=== PATIENT | female | born 1995 | race Caucasian/White ===

== ENCOUNTER 2017-02-09 10:32 | Day surgery (SDC) | payer SELFPAY, MEDICAID ==
[~2017-02-09 10:32] MED LIST: Acetaminophen/HYDROcodone 325-5 MG Tab PO PRN; Bupivacaine 0.25%/EPINEPHrine 1:200,000 10 ML SDV INJECT ONE; Bupivacaine 0.25%/EPINEPHrine 1:200,000 10 ML SDV ONE; Dexamethasone 4 MG/ML 5 ML MDV ONE; EPINEPHrine 1 MG/ML SDV ONE; Gentamicin 40 MG/ML 2 ML Vial ONE; Lactated Ringers 1,000 ML IV SCH; Lidocaine 2% 5 ML SDV ONE; Midazolam 1 MG/ML 2 ML SDV ONE; Ondansetron 4 MG/2 ML SDV ONE; Propofol 200 MG/20 ML SDV ONE; Rocuronium 10 MG/ML 10 ML Syringe ONE; Scopolamine 1.5 MG Transdermal Patch TRDERM PRN; ceFAZolin 1 GM Vial ONE; ceFAZolin 2 GM in Premix Bag 1 BAG IV ONE; diphenhydrAMINE 50 MG/ML SDV ONE; fentaNYL 250 MCG/5 ML SDV ONE
--- NOTE | 2017-02-09 10:53 | PCM.PREANE ---
Preanesthetic Assessment - Anesthesia/Transfusion/Family Hx Anesthesia History: Prior Anesthesia Without Reaction Family History of Anesthesia Reaction: No Transfusion History: Prior Transfusion Without Reaction Intubation History: Unknown - Review of Systems General: No Symptoms Pulmonary: No Symptoms Cardiovascular: No Symptoms Gastrointestinal: No Symptoms Neurological: No Symptoms Other: Reports: None - Physical Assessment Height: 1.78 m Weight: 62.596 kg ASA Class: 2 Mental Status: Alert & Oriented x3 Airway Class: Mallampati = 2 Dentition: Reports: Normal Dentition Thyro-Mental Finger Breadths: 3 Mouth Opening Finger Breadths: 3 ROM/Head Extension: Full Lungs: Clear to Auscultation, Normal Respiratory Effort Cardiovascular: Regular Rate, Regular Rhythm - Allergies Allergies/Adverse Reactions: Allergies Allergy/AdvReac Type Severity Reaction Status Date / Time No Known Allergies Allergy Verified 07/11/16 14:47 - Blood Blood Available: No - Anesthesia Plan Pre-Op Medication Ordered: None - Acknowledgements Anesthesia Type Planned: General Anesthesia Pt an Appropriate Candidate for the Planned Anesthesia: Yes Alternatives and Risks of Anesthesia Discussed w Pt/Guardian: Yes Pt/Guardian Understands and Agrees with Anesthesia Plan: Yes PreAnesthesia Questionnaire - Past Health History Medical/Surgical History: Denies Medical/Surgical History HEENT History: Reports: None Cardiovascular History: Reports: None Respiratory History: Reports: None Other Respiratory History: Pt reported dry cough for 5 days now Gastrointestinal History: Reports: None Genitourinary History: Reports: None ANALYTICAL ENGINEER History: Reports: Polycystic Ovaries, , Spontaneous , Other (See Below) (molar in second trimester a year ago) Musculoskeletal History: Reports: None Neurological History: Reports: Concussion Psychiatric History: Reports: Depression Other Psychiatric History: Pt reported history of depression but did not take any medication for it. she stated "I tried to kill myself when I was in high school" Endocrine/Metabolic History: Reports: None Hematologic History: Reports: Blood Transfusion(s) Other Hematologic History: hx transfusion with previous miscarraige when pt had her d/c Immunologic History: Reports: None Oncologic (Cancer) History: Reports: None Dermatologic History: Reports: Eczema Other Dermatologic History: cystic acne - Infectious Disease History Infectious Disease History: Reports: None - Past Surgical History Head Surgeries/Procedures: Reports: None HEENT Surgical History: Reports: Tonsillectomy Female Surgical History: Reports: D&C, Other (See Below) Other Female Surgeries/Procedures: D&C x2, miscarriage - SUBSTANCE USE Smoking Status *Q: Current Every Day Smoker (1/2 ppd) Tobacco Use Within Last Twelve Months: Cigarettes Days Per Week of Alcohol Use: 1 Number of Drinks Per Day: 1 Total Drinks Per Week: 1 Recreational Drug Use History: No - HOME MEDS Home Medications: Home Meds Adapalene 1 applic TOP BEDTIME 02/06/17 [History] Clindamycin Phosphate [Clindagel] 1 applic TOP BID 02/06/17 [History] metFORMIN HCl [Metformin HCl] 500 mg PO BID 02/06/17 [History] - CURRENT (IN HOUSE) MEDS Current Meds: Current Medications Hydrocodone Bitart/Acetaminophen (Rapidan 325-5 Mg) 1 tab PO Q4H PRN PRN Reason: Pain Lactated Ringer's (Ringers, Lactated) 1,000 mls @ 125 mls/hr IV ASDIRECTED MARQUEZ Scopolamine (Transderm-Scop) 1.5 mg TRDERM .ONCE PRN PRN Reason: Post Op Nausea Discontinued Medications Bacitracin (Bacitracin) 50,000 units .ROUTE .STK-MED ONE Stop: 02/09/17 07:16 Bupivacaine HCl/Epinephrine Bitart (Marcaine 0.25%/Epinephrine 1:200,000) 30 ml INJECT ONETIME ONE Stop: 02/09/17 10:01 Bupivacaine HCl/Epinephrine Bitart (Marcaine 0.25%/Epinephrine 1:200,000) Confirm Administered Dose 40 ml .ROUTE .STK-MED ONE Stop: 02/09/17 07:29 Cefazolin Sodium (Ancef) Confirm Administered Dose 1 gm .ROUTE .STK-MED ONE Stop: 02/09/17 07:29 Dexamethasone (Dexamethasone) Confirm Administered Dose 20 mg .ROUTE .STK-MED ONE Stop: 02/09/17 09:40 Diphenhydramine HCl (Benadryl) Confirm Administered Dose 50 mg .ROUTE .STK-MED ONE Stop: 02/09/17 09:40 Epinephrine HCl (Adrenalin 1:1000) Confirm Administered Dose 1 mg .ROUTE .STK- MED ONE Stop: 02/09/17 07:29 Fentanyl (Sublimaze) Confirm Administered Dose 250 mcg .ROUTE .STK-MED ONE Stop: 02/09/17 09:40 Gentamicin Sulfate (Gentamicin) Confirm Administered Dose 80 mg .ROUTE .STK-MED ONE Stop: 02/09/17 07:29 Cefazolin Sodium/Dextrose 2 gm (/ Premix) 50 mls @ 100 mls/hr IV ONETIME ONE Stop: 02/09/17 09:29 Lidocaine (Xylocaine-Mpf 2%) Confirm Administered Dose 5 ml .ROUTE .STK-MED ONE Stop: 02/09/17 09:39 Midazolam HCl (Versed 1 Mg/Ml) Confirm Administered Dose 2 mg .ROUTE .STK-MED ONE Stop: 02/09/17 09:40 Ondansetron HCl (Zofran) Confirm Administered Dose 4 mg .ROUTE .STK-MED ONE Stop: 02/09/17 09:39 Propofol (Diprivan 20 Ml) Confirm Administered Dose 200 mg .ROUTE .STK-MED ONE Stop: 02/09/17 09:40 Rocuronium [place] (Zemuron) Confirm Administered Dose 100 mg .ROUTE .STK-MED ONE Stop: 02/09/17 09:39
[2017-02-09] MEDS ORDERED: HYDROmorphone 2 MG/ML Syringe ONE (11:22)
[2017-02-09] MEDS ORDERED: fentaNYL 100 MCG/2 ML SDV IVPUSH PRN (11:36)
[2017-02-09] MEDS ORDERED: Ketorolac 30 MG/ML SDV ONE (12:20)
--- NOTE | 2017-02-09 13:20 | PCM.POSTAN ---
POST ANESTHESIA ASSESSMENT - MENTAL STATUS Mental Status: Alert, Oriented - RESPIRATORY Respiratory Status: Respiratory Rate WNL, Airway Patent, O2 Saturation Stable - CARDIOVASCULAR CV Status: Pulse Rate WNL, Blood Pressure Stable - GASTROINTESTINAL GI Status: No Symptoms - PAIN Pain Score: 5 - POST OP HYDRATION Hydration Status: Adequate & Stable - OBSERVATIONS Free Text/Narrative:: no anesthesia problems
[2017-02-09] MEDS ORDERED: diphenhydrAMINE 50 MG/ML SDV IVPUSH ONE (13:38)
[2017-02-09] MEDS ORDERED: diphenhydrAMINE 25 MG Cap PO ONE (15:04)
[2017-02-09 15:27] VITALS: BP 129/78
--- NOTE | 2017-02-12 09:14 | PCM.OPNOTE ---
- General Post-Op/Procedure Note Date of Surgery/Procedure: 02/09/17 Operative Procedure(s): bilateral breast augmentation Pre Op Diagnosis: desire for breast augmentation - saline Post-Op Diagnosis: Same Anesthesia Technique: General ET Tube, Local Primary Surgeon: Monisha Figueroa Stage Set Designer: Ese Jack Complications: None Condition: Good
--- NOTE | 2017-02-13 00:55 | OR ---
SURGEON: RENO ALONSO MD DATE OF PROCEDURE: 02/09/2017 PREOPERATIVE DIAGNOSIS: Desire for breast augmentation. POSTOPERATIVE DIAGNOSIS: Desire for breast augmentation. PROCEDURE PERFORMED: Bilateral saline breast augmentation. ANODE MACHINE OPERATOR: SIERRA Noguera. INDICATIONS: Ms. Levi is a 21-year-old female seen today in evaluation for bilateral breast augmentation. She is too young for silicone and would like to proceed with saline implant augmentation. Risks and benefits were discussed with her, and she was in agreement to proceed. Risks were including, but not limited to, bleeding, infection, damage to underlying or overlying structures, possible need for future interventions, and possible scarring. DESCRIPTION OF PROCEDURE: After informed consent was obtained and placed on the chart, the patient was brought to the operating theater laid in supine position. After adequate general anesthesia was obtained, the area was prepped and draped, and a time-out was completed to verify side and site. Attention was then paid to infiltration of local anesthesia around the breast area and marking of the incision in the anticipated inframammary fold approximately 7 cm from the nipple areolar complex. Once adequately marked, attention was then paid to dissection and a #15 blade was used to dissect through the skin and subcutaneous tissues. Then, Bovie electrocautery was used to dissect until localization of the inferior border of the pectoralis muscle. The inferior border was transected under direct visualization using lighted mammary retractor. Once adequately transected, the subpectoral plane was dissected and meticulous hemostasis was obtained. The pocket was copiously irrigated and packed with epi soaked laps. Attention was paid to symmetric dissection on the opposite side. Once completed, the pockets were copiously irrigated with triple antibiotic solution. The style 68MP Natrelle saline- filled breast implants were then opened and prepped in normal fashion. All air was removed and the implants were placed into the pocket. They have been expanded with 120 mL of fluid prior to the placement into the pocket to ensure constitution of the implant itself. Once placed, the 390 mL implants were filled to 420 mL of sterile injectable saline. The patient was sat up and appropriate symmetry was appreciated. Prior to placement of the implants, tacking 2-0 PDS sutures were used along the inframammary fold and lateral margin to ensure appropriate placement of the implant. Once the implants were placed, the skin was closed with deep 3-0 Monocryl stitches and a running 4-0 subcuticular for the skin. Unfortunately, the initial right saline implant was punctured and had to be removed and was replaced with a new saline implant. IMPLANTED IMPLANTS: 1. On the right, Natrelle style 68MP 390 mL saline implant, reference number 68-390, serial number [id number], was filled to 420 mL. 2. Style 68MP Natrelle saline-filled breast implant 390 mL, reference number 68-390, serial number [id number] placed on the left and filled to 420 mL. DISCARDED IMPLANT: Discarded implant that was punctured during the procedure was reference number 68-390, serial number [id number]. Once adequately placed and the skin incisions were closed appropriately, these incisions were dressed with Steri-Strips, fluffs, and tape and a compression bra. The patient tolerated this well. All counts of needles were correct at the end the case. FOLLOWUP INSTRUCTIONS: The patient will see us in clinic on Sunday or sooner if any problems, questions, or concerns. ASIYA / BETH /[id number]
== END 2017-02-09 15:15 | disposition home or self-care (01) ==
LOC: MW.SDS 10:32
PROVIDERS: ATTEND Plastic Surgery
PROC: 0H0V0JZ Alteration of Bilateral Breast with Synthetic Substitute, Open Approach (ICD-10-PCS; principal; 2017-02-09)
DX: Z41.1 Encounter for cosmetic surgery (principal); E28.2 Polycystic ovarian syndrome; F32.9 Major depressive disorder, single episode, unspecified; F17.210 Nicotine dependence, cigarettes, uncomplicated; Z86.19 Personal history of other infectious and parasitic diseases; Z90.89 Acquired absence of other organs; Z98.890 Other specified postprocedural states; Z79.899 Other long term (current) drug therapy
CPT/HCPCS: 19325; 81025; A9270; J0171; J0690; J1100; J1170; J1200; J1580; J1885; J2250; J2405; J3010; J7120; 00402; C1789; J2704

== ENCOUNTER 2017-10-25 21:53 | Inpatient (IN) | payer MEDICAID ==
[2017-10-25] MEDS ORDERED: Sodium Chloride 0.9% 10 ML Syringe FLUSH PRN (22:15)
[2017-10-25] MEDS ORDERED: Methylergonovine 0.2 MG/1 ML Amp IM PRN (22:15)
[2017-10-25] MEDS ORDERED: Misoprostol 200 MCG Tab PO PRN (22:15)
[2017-10-25] MEDS ORDERED: Butorphanol 1 MG/ML SDV IVPUSH PRN (22:15)
[2017-10-25] MEDS ORDERED: Nalbuphine 10 MG/1 ML Vial IVPUSH PRN (22:15)
[2017-10-25] MEDS ORDERED: Tranexamic Acid 1,000 MG in Sodium Chloride 0.9% 100 ML IV PRN (22:15)
[2017-10-25] MEDS ORDERED: Oxytocin/0.9 % Sodium Chloride 30 UNIT/500 ML BAG IV SCH ×2 (22:15→22:30)
[2017-10-25] MEDS ORDERED: Carboprost Tromethamine 250 MCG/1 ML Amp IM PRN (22:15)
[2017-10-25] MEDS ORDERED: Water For Irrigation,Sterile 1,000 ML Container IRR PRN (22:15)
[2017-10-25] MEDS ORDERED: Lidocaine 1% 50 ML MDV INJECT PRN (22:15)
[2017-10-25] MEDS ORDERED: Sodium Chloride 0.9% 2.5 ML Syringe FLUSH PRN (22:15)
[2017-10-25] MEDS ORDERED: Misoprostol 25 MCG (1/4 of 100 MCG) Tab VAG PRN (22:16)
[2017-10-25] MEDS ORDERED: Terbutaline 1 MG/ML SDV SUBCUT PRN (22:16)
[2017-10-25] MEDS ORDERED: Misoprostol 25 MCG (1/4 of 100 MCG) Tab VAG SCH (22:30)
[2017-10-26] MEDS: Lactated Ringers 1,000 ML IV SCH ×3 (03:40→07:17)
--- NOTE | 2017-10-26 05:30 | PCM.PREANE ---
Preanesthetic Assessment - Anesthesia/Transfusion/Family Hx Anesthesia History: Prior Anesthesia Without Reaction Family History of Anesthesia Reaction: No Transfusion History: Prior Transfusion Without Reaction Intubation History: Unknown - Review of Systems General: No Symptoms Pulmonary: No Symptoms Cardiovascular: No Symptoms Gastrointestinal: No Symptoms Neurological: No Symptoms Other: Reports: None (Denies any personal or family hx of bleeding or clotting problems) - Physical Assessment Height: 1.55 m Weight: 74.843 kg ASA Class: 2 Mental Status: Alert & Oriented x3 Airway Class: Mallampati = 2 Dentition: Reports: Normal Dentition - Lab Values: Laboratory Last Values WBC 9.40 K/uL (4.0-11.0) 10/25/17 22: RBC 3.95 M/uL (4.30-5.90) L 10/25/17 22: Hgb 11.6 g/dL (12.0-16.0) L 10/25/17 22: Hct 34.3 % (36.0-46.0) L 10/25/17 22: MCV 86.8 fL (80.0-98.0) 10/25/17 22: MCH 29.4 pg (27.0-32.0) 10/25/17 22: MCHC 33.8 g/dL (31.0-37.0) 10/25/17 22: RDW Std Deviation 42.9 fl (28.0-62.0) 10/25/17 22: RDW Coeff of Elvie 13 % (11.0-15.0) 10/25/17 22: Plt Count 268 K/uL (150-400) 10/25/17 22: MPV 9.80 fL (7.40-12.00) 10/25/17 22:27 Nucleated RBC % 0.0 /100WBC 10/25/17 22: Nucleated RBCs # 0 K/uL 10/25/17 22:27 Blood Type O POSITIVE 10/25/17 22:27 Antibody Screen NEGATIVE 10/25/17 22:27 - Allergies Allergies/Adverse Reactions: Allergies Allergy/AdvReac Type Severity Reaction Status Date / Time perfume Allergy Rash Verified 10/25/17 22:11 - Acknowledgements Anesthesia Type Planned: Epidural Pt an Appropriate Candidate for the Planned Anesthesia: Yes Alternatives and Risks of Anesthesia Discussed w Pt/Guardian: Yes Pt/Guardian Understands and Agrees with Anesthesia Plan: Yes PreAnesthesia Questionnaire - Past Health History Medical/Surgical History: Denies Medical/Surgical History HEENT History: Reports: None Cardiovascular History: Reports: None Respiratory History: Reports: None Other Respiratory History: Pt reported dry cough for 5 days now Gastrointestinal History: Reports: None Genitourinary History: Reports: None 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 she stated "I tried to kill myself when I was in high school" Endocrine/Metabolic History: Reports: None Hematologic History: Reports: Blood Transfusion(s) Other Hematologic History: hx transfusion with previous miscarraige when pt had her d/c Immunologic History: Reports: None Oncologic (Cancer) History: Reports: None Dermatologic History: Reports: Eczema Other Dermatologic History: cystic acne - Infectious Disease History Infectious Disease History: Reports: None - Past Surgical History Head Surgeries/Procedures: Reports: None HEENT Surgical History: Reports: Tonsillectomy Female Surgical History: Reports: Breast Implant, D&C, Other (See Below) Other Female Surgeries/Procedures: D&C x2, miscarriage, breast augmentation - SUBSTANCE USE Smoking Status *Q: Current Every Day Smoker Tobacco Use Within Last Twelve Months: Cigarettes Days Per Week of Alcohol Use: 1 Number of Drinks Per Day: 1 Total Drinks Per Week: 1 Recreational Drug Use History: No - HOME MEDS Home Medications: Home Meds metFORMIN HCl [Metformin HCl] 500 mg PO BID 02/06/17 [History] - CURRENT (IN HOUSE) MEDS Current Meds: Current Medications Butorphanol Tartrate (Stadol) 1 mg IVPUSH Q1H PRN PRN Reason: Pain Carboprost Tromethamine (Hemabate Ds) 250 mcg IM ASDIRECTED PRN PRN Reason: Post Hemorrhage Lactated Ringer's (Ringers, Lactated) 1,000 mls @ 150 mls/hr IV ASDIRECTED MARQUEZ Last Admin: 10/26/17 05:04 Dose: 500 mls/hr Oxytocin/Sodium Chloride (Oxytocin 30 Unit/500 Ml-Ns) 30 unit in 500 mls @ 999 mls/hr IV TITRATE MARQUEZ Tranexamic Acid 1,000 mg/ (Sodium Chloride) 110 mls @ 660 mls/hr IV ONETIME PRN PRN Reason: Bleeding Oxytocin/Sodium Chloride (Oxytocin 30 Unit/500 Ml-Ns) 30 unit in 500 mls @ 2 mls/hr IV TITRATE MARQUEZ; Protocol Lidocaine HCl (Xylocaine 1%) 50 ml INJECT .ONCE PRN PRN Reason: Laceration repair Methylergonovine Maleate (Methergine) 0.2 mg IM ASDIRECTED PRN PRN Reason: Post Hemorrhage Misoprostol (Cytotec) 200 mcg PO .ONCE PRN PRN Reason: Post Hemorrhage Misoprostol (Cytotec) 25 mcg VAG .ONCE MARQUEZ Last Admin: 10/25/17 22:45 Dose: 25 mcg Misoprostol (Cytotec) 25 mcg VAG Q6H PRN PRN Reason: Cervical Ripening Nalbuphine HCl (Nubain) 10 mg IVPUSH Q1H PRN PRN Reason: Pain (severe 7-10) Sodium Chloride (Saline Flush) 10 ml FLUSH ASDIRECTED PRN PRN Reason: Keep Vein Open Sodium Chloride (Saline Flush) 2.5 ml FLUSH ASDIRECTED PRN PRN Reason: Keep Vein Open Sterile Water (Sterile Water For Irrigation) 1,000 ml IRR ASDIRECTED PRN PRN Reason: delivery Terbutaline Sulfate (Brethine) 0.25 mg SUBCUT ASDIRECTED PRN PRN Reason: Tacysystole Discontinued Medications Fentanyl/Bupivacaine HCl (Aefagvjq-Ohknq-Yr 2 Mcg/Ml-0.125%) Confirm Administered Dose 100 mls @ as directed EP .STK-MED ONE Stop: 10/26/17 04:54
[2017-10-26] MEDS ORDERED: Acetaminophen 500 MG Tab PO PRN ×2 (08:33)
[2017-10-26] MEDS ORDERED: Docusate Sodium 100 MG Cap PO PRN (08:33)
[2017-10-26] MEDS ORDERED: Witch Hazel Medicated Pads 40/Jar TOP PRN (08:33)
[2017-10-26] MEDS ORDERED: oxyCODONE 5 MG Tab PO PRN (08:33)
[2017-10-26] MEDS ORDERED: Ibuprofen 400 MG Tab PO PRN (08:33)
[2017-10-26] MEDS ORDERED: Bisacodyl 10 MG Supp RECTAL PRN (08:33)
[2017-10-26] MEDS ORDERED: Lanolin 100% Cream 7 GM Tube TOP PRN (08:33)
[2017-10-26] MEDS ORDERED: Benzocaine/Menthol 20%-0.5% Spray 78 GM Cannister TOP PRN (08:33)
[2017-10-26] MEDS: Ibuprofen 800 MG Tab PO PRN ×2 (14:49→21:30)
--- NOTE | 2017-10-26 15:43 | OR ---
SURGEON: Yany Sandhu MD DATE OF PROCEDURE: 10/26/2017 PREOPERATIVE DIAGNOSES: 1. Intrauterine at 39 weeks and 1 day. 2. Elective induction of labor. POSTOPERATIVE DIAGNOSES: 1. Intrauterine at 39 weeks and 1 day. 2. Elective induction of labor. 3. Delivered. PROCEDURES: 1. Induction of labor. 2. Spontaneous vaginal delivery. ANESTHESIA: Epidural. ESTIMATED BLOOD LOSS: 200 mL. COMPLICATIONS: None. DISPOSITION: Mother and baby stable in Labor and Delivery room, bonding. FINDINGS: Male , weight 3430 g, and score of 7 and 8. Grossly normal placenta with three-vessel cord. Bilateral labial abrasions, hemostatic. BRIEF HISTORY: The patient is a 21-year-old, G5, P1-0-0-3-1, who was admitted overnight at 39 weeks' gestation for elective induction of labor secondary to remote distance from the hospital. Her care was uncomplicated. GBS negative. On admission, she was 2 cm dilated and received one dose of Cytotec vaginally, 25 mcg and progressed to 4 cm at her recheck 6 hours later, and requested and received epidural at that time. Spontaneous rupture of membranes, cord, and clear amniotic fluid noted. She then progressed to full dilatation within 3 hours and with increasing rectal pressure, she commenced pushing. heart tracing was category 1. She pushed quite well bringing the head down to a +4 station and was set up for delivery in modified dorsal lithotomy position. DESCRIPTION OF PROCEDURE: She had a spontaneous vaginal delivery of a live male infant in right occipital anterior position, and loose nuchal cord easily reduced. Clear amniotic fluid at delivery. Anterior and posterior shoulders and the rest of the baby were delivered without difficulty. Baby was vigorous and cried spontaneously at . The baby was delivered onto the maternal abdomen with the nursery nurse in attendance, stimulating and drying him. Delayed cord clamping was observed and the cord was cut. With delivery of the infant, oxytocin titration was commenced for active management of third stage of labor. Cord blood and gas samples were obtained. The placenta was delivered by controlled cord traction, appeared to be complete and intact. Uterine massage was performed. The uterus was found to be well contracted below the umbilicus. Examination of the perineum revealed bilateral groin abrasions which were hemostatic. The patient tolerated the procedure well. Sponge, instrument, and needle counts were correct at the end of the delivery. ADUMVIV / MODL /[id number]
--- NOTE | 2017-10-27 07:48 | PCM48HPAN ---
Post Anesthesia Note - EVALUATION WITHIN 48HRS OF ANESTHETIC Vital Signs in Normal Range: Yes Patient Participated in Evaluation: Yes Respiratory Function Stable: Yes Airway Patent: Yes Cardiovascular Function Stable: Yes Hydration Status Stable: Yes Pain Control Satisfactory: Yes Nausea and Vomiting Control Satisfactory: Yes Mental Status Recovered: Yes Resp Rate: 16
[2017-10-27 08:06] VITALS: BP 133/71
--- NOTE | 2017-10-27 08:48 | PCM.PNPP ---
<Anette Reyes - Last Filed: 10/27/17 08:42> - General Info Date of Service: 10/27/17 Admission Dx/Problem (Free Text): 39/1 EIOL secondary to remote distance from hospital, . Subjective Update: Patient is doing well. Pain well controlled with medications. . Lochia WNL. Tolerating food with no n/v. Urinating. No bowel movement, but flatus present. Ambulating. Functional Status: Reports: Pain Controlled, Tolerating Diet, Ambulating, Urinating - Review of Systems General: Denies: Fever, Chills HEENT: Denies: Headaches Pulmonary: Denies: Shortness of Breath, Pleuritic Chest Pain Cardiovascular: Denies: Chest Pain, Palpitations, Lightheadedness Gastrointestinal: Reports: Flatus. Denies: Nausea, Vomiting Psychiatric: Reports: No Symptoms - General Info Date of Service: 10/27/17 - Patient Data Vital Signs - Most Recent: Last Vital Signs Temp 36.5 C 10/27/17 08:05 Pulse 65 10/27/17 08:05 Resp 16 10/27/17 08:05 BP 133/71 10/27/17 08:05 Pulse Ox 95 10/27/17 08:05 Weight - Most Recent: 74.843 kg Lab Results - Last 24 Hours: Laboratory Results - last 24 hr 10/26/17 10/27/17 Range/Units 08:03 06:08 Hgb 11.2 L (12.0-16.0) g/dL Hct 34.3 L (36.0-46.0) % Cord ABG pH 7.245 (7.18-7.38) Cord ABG Base Excess -4 (-10--2) Cord VBG pH 7.368 (7.25-7.45) Cord VBG Base Excess -4 (-10--2) Med Orders - Current: Current Medications Acetaminophen (Tylenol Extra Strength) 500 mg PO Q4H PRN PRN Reason: Pain Acetaminophen (Tylenol Extra Strength) 1,000 mg PO Q4H PRN PRN Reason: Pain Benzocaine/Menthol (Dermoplast Pain Relief 20%-0.5% [place]) 78 gm TOP ASDIRECTED PRN PRN Reason: Perineal Comfort Measure Bisacodyl (Dulcolax) 10 mg RECTAL .ONCE PRN PRN Reason: Constipation Docusate Sodium (Colace) 100 mg PO BID PRN PRN Reason: Constipation Last Admin: 10/26/17 21:30 Dose: 100 mg Emollient Ointment (Lansinoh Hpa) 0 gm TOP ASDIRECTED PRN PRN Reason: Sore Nipples Ibuprofen (Motrin) 400 mg PO Q4H PRN PRN Reason: Pain Ibuprofen (Motrin) 800 mg PO Q6H PRN PRN Reason: Pain Last Admin: 10/26/17 21:30 Dose: 800 mg Oxycodone HCl (Oxycodone) 5 mg PO Q2H PRN PRN Reason: Pain Witch Ruth (Tucks) 1 pad TOP ASDIRECTED PRN PRN Reason: comfort care Discontinued Medications Butorphanol Tartrate (Stadol) 1 mg IVPUSH Q1H PRN PRN Reason: Pain Carboprost Tromethamine (Hemabate Ds) 250 mcg IM ASDIRECTED PRN PRN Reason: Post Hemorrhage Lactated Ringer's (Ringers, Lactated) 1,000 mls @ 150 mls/hr IV ASDIRECTED [facility]QUEZ Last Admin: 10/26/17 07:17 Dose: 500 mls/hr Oxytocin/Sodium Chloride (Oxytocin 30 Unit/500 Ml-Ns) 30 unit in 500 mls @ 999 mls/hr IV TITRATE REPLACED BY [facility] Last Admin: 10/26/17 08:05 Dose: 999 mls/hr Tranexamic Acid 1,000 mg/ (Sodium Chloride) 110 mls @ 660 mls/hr IV ONETIME PRN PRN Reason: Bleeding Oxytocin/Sodium Chloride (Oxytocin 30 Unit/500 Ml-Ns) 30 unit in 500 mls @ 2 mls/hr IV TITRATE REPLACED BY [facility]; Protocol Fentanyl/Bupivacaine HCl ([place]-Upwul-Hb 2 Mcg/Ml-0.125%) Confirm Administered Dose 100 mls @ as directed EP .[facility] Stop: 10/26/17 04:54 Lidocaine HCl (Xylocaine 1%) 50 ml INJECT .ONCE PRN PRN Reason: Laceration repair Methylergonovine Maleate (Methergine) 0.2 mg IM ASDIRECTED PRN PRN Reason: Post Hemorrhage Misoprostol (Cytotec) 200 mcg PO .ONCE PRN PRN Reason: Post Hemorrhage Misoprostol (Cytotec) 25 mcg VAG .ONCE [facility] Last Admin: 10/25/17 22:45 Dose: 25 mcg Misoprostol (Cytotec) 25 mcg VAG Q6H PRN PRN Reason: Cervical Ripening Nalbuphine HCl (Nubain) 10 mg IVPUSH Q1H PRN PRN Reason: Pain (severe 7-10) Sodium Chloride (Saline Flush) 10 ml FLUSH ASDIRECTED PRN PRN Reason: Keep Vein Open Sodium Chloride (Saline Flush) 2.5 ml FLUSH ASDIRECTED PRN PRN Reason: Keep Vein Open Sterile Water (Sterile Water For Irrigation) 1,000 ml IRR ASDIRECTED PRN PRN Reason: delivery Terbutaline Sulfate (Brethine) 0.25 mg SUBCUT ASDIRECTED PRN PRN Reason: Tacysystole - Interaction Disposition, : in Room with Family Interaction: Holding Infant Feeding: Attempted ; Nursed Fair/Poor Support Person: - Recovery Exam Fundal Tone: Firm Fundal Level: 1 Fingerbreadths Below Umbilicus Fundal Placement: Midline Lochia Amount: Scant Lochia Color: Rubra/Red Episiotomy/Laceration: None Bladder Status: Voiding Urinary Elimination: Voided - Exam General: Alert, Oriented, No Acute Distress Lungs: Clear to Auscultation, Normal Respiratory Effort Cardiovascular: Regular Rate, Regular Rhythm GI/Abdominal Exam: Soft, Non-Tender Extremities: Pedal Edema Skin: Warm, Dry Psy/Mental Status: Alert Physical Findings Comment:: Trace edema. - Problem List & Annotations (1) Vaginal delivery SNOMED Code(s): 097734744 Code(s): O80 - ENCOUNTER FOR FULL-TERM UNCOMPLICATED DELIVERY Status: Acute Current Visit: Yes - Assessment Assessment:: PPD #1. Stable. Anticipate discharge. - Plan Plan:: Reviewed discharge instructions. Pelvic rest for 6 weeks. Continue PNV while . Use OTC tylenol/ibuprofen as needed for pain. Call if fever greater than 101 or bleeding through a heavy pad in an hour. Follow-up appointment in 6 weeks. <Bridgett Sarabia - Last Filed: 10/27/17 09:52> - Patient Data Vital Signs - Most Recent: Last Vital Signs Temp 36.5 C 10/27/17 08:05 Pulse 65 10/27/17 08:05 Resp 16 10/27/17 08:05 BP 133/71 10/27/17 08:05 Pulse Ox 95 10/27/17 08:05 Lab Results - Last 24 Hours: Laboratory Results - last 24 hr 10/27/17 Range/Units 06:08 Hgb 11.2 L (12.0-16.0) g/dL Hct 34.3 L (36.0-46.0) % Med Orders - Current: Current Medications Acetaminophen (Tylenol Extra Strength) 500 mg PO Q4H PRN PRN Reason: Pain Acetaminophen (Tylenol Extra Strength) 1,000 mg PO Q4H PRN PRN Reason: Pain Benzocaine/Menthol (Dermoplast Pain Relief 20%-0.5% [place]) 78 gm TOP ASDIRECTED PRN PRN Reason: Perineal Comfort Measure Bisacodyl (Dulcolax) 10 mg RECTAL .ONCE PRN PRN Reason: Constipation Docusate Sodium (Colace) 100 mg PO BID PRN PRN Reason: Constipation Last Admin: 10/26/17 21:30 Dose: 100 mg Emollient Ointment (Lansinoh Hpa) 0 gm TOP ASDIRECTED PRN PRN Reason: Sore Nipples Ibuprofen (Motrin) 400 mg PO Q4H PRN PRN Reason: Pain Ibuprofen (Motrin) 800 mg PO Q6H PRN PRN Reason: Pain Last Admin: 10/26/17 21:30 Dose: 800 mg Oxycodone HCl (Oxycodone) 5 mg PO Q2H PRN PRN Reason: Pain Witch Ruth (Tucks) 1 pad TOP ASDIRECTED PRN PRN Reason: comfort care Discontinued Medications Butorphanol Tartrate (Stadol) 1 mg IVPUSH Q1H PRN PRN Reason: Pain Carboprost Tromethamine (Hemabate Ds) 250 mcg IM ASDIRECTED PRN PRN Reason: Post Hemorrhage Lactated Ringer's (Ringers, Lactated) 1,000 mls @ 150 mls/hr IV ASDIRECTED [facility] Last Admin: 10/26/17 07:17 Dose: 500 mls/hr Oxytocin/Sodium Chloride (Oxytocin 30 Unit/500 Ml-Ns) 30 unit in 500 mls @ 999 mls/hr IV TITRATE REPLACED BY [facility] Last Admin: 10/26/17 08:05 Dose: 999 mls/hr Tranexamic Acid 1,000 mg/ (Sodium Chloride) 110 mls @ 660 mls/hr IV ONETIME PRN PRN Reason: Bleeding Oxytocin/Sodium Chloride (Oxytocin 30 Unit/500 Ml-Ns) 30 unit in 500 mls @ 2 mls/hr IV TITRATE [facility]; Protocol Fentanyl/Bupivacaine HCl ([place]kezibfo-Exlof-Ms 2 Mcg/Ml-0.125%) Confirm Administered Dose 100 mls @ as directed EP .[facility] Stop: 10/26/17 04:54 Lidocaine HCl (Xylocaine 1%) 50 ml INJECT .ONCE PRN PRN Reason: Laceration repair Methylergonovine Maleate (Methergine) 0.2 mg IM ASDIRECTED PRN PRN Reason: Post Hemorrhage Misoprostol (Cytotec) 200 mcg PO .ONCE PRN PRN Reason: Post Hemorrhage Misoprostol (Cytotec) 25 mcg VAG .ONCE [facility] Last Admin: 10/25/17 22:45 Dose: 25 mcg Misoprostol (Cytotec) 25 mcg VAG Q6H PRN PRN Reason: Cervical Ripening Nalbuphine HCl (Nubain) 10 mg IVPUSH Q1H PRN PRN Reason: Pain (severe 7-10) Sodium Chloride (Saline Flush) 10 ml FLUSH ASDIRECTED PRN PRN Reason: Keep Vein Open Sodium Chloride (Saline Flush) 2.5 ml FLUSH ASDIRECTED PRN PRN Reason: Keep Vein Open Sterile Water (Sterile Water For Irrigation) 1,000 ml IRR ASDIRECTED PRN PRN Reason: delivery Terbutaline Sulfate (Brethine) 0.25 mg SUBCUT ASDIRECTED PRN PRN Reason: Tacysystole - Problem List & Annotations (1) Vaginal delivery SNOMED Code(s): 611475147 Code(s): O80 - ENCOUNTER FOR FULL-TERM UNCOMPLICATED DELIVERY Status: Acute Current Visit: Yes - Problem List Review Problem List Initiated/Reviewed/Updated: Yes - Plan Plan:: patient was seen and examined and I agree with above. Dismiss to home today, discharge instructions reviewed.
== END 2017-10-27 11:30 | disposition home or self-care (01) | DRG 775 ==
LOC: MW.OBCHECK 21:53 → MW.OB 21:57 → MW.OBCHECK 22:15 → OBSVTOIN 10-26 08:03
PROVIDERS: ADMIT Obstetrics & Gynecology; ATTEND Obstetrics & Gynecology
PROC: 10E0XZZ Delivery of Products of Conception, External Approach (ICD-10-PCS; principal; 2017-10-26)
PROC: 3E0P7VZ Introduction of Hormone into Female Reproductive, Via Natural or Artificial Opening (ICD-10-PCS; 2017-10-26)
DX: O80 Encounter for full-term uncomplicated delivery (principal); Z37.0 Single live birth; Z3A.39 39 weeks gestation of pregnancy
CPT/HCPCS: 36415; 51702; 59025; 59409; 82803; 85014; 85018; 85027; 86850; 86900; 86901; A9270-GY; J2590; J7120